=== PATIENT | female | born 1975 | race Caucasian/White ===

== ENCOUNTER 2016-08-08 06:17 | Day surgery (SDC) | payer BC ==
[2016-08-08] MEDS ORDERED: BUPIVACAINE 0.5% 30 ML SDV ONE (07:28)
[2016-08-08] MEDS ORDERED: LR 1,000 ML IV ONE (07:46)
[2016-08-08] MEDS ORDERED: LIDOCAINE 2% JELLY 5 ML TUBE ONE (08:36)
[2016-08-08] MEDS ORDERED: DEXAMETHASONE 4 MG/ML VIAL ONE ×2 (08:36)
[2016-08-08] MEDS ORDERED: LIDOCAINE 2% 5 ML SDV ONE (08:36)
[2016-08-08] MEDS ORDERED: fentaNYL 100 MCG/2 ML INJ ONE ×2 (08:36→09:58)
[2016-08-08] MEDS ORDERED: ONDANSETRON 4 MG/2 ML VIAL ONE (08:36)
[2016-08-08] MEDS ORDERED: PROPOFOL 200 MG/20 ML VIAL ONE ×2 (08:36→09:58)
[2016-08-08] MEDS ORDERED: MIDAZOLAM 2 MG/2 ML VIAL ONE (09:04)
[2016-08-08] MEDS ORDERED: ceFAZolin 1 GM VIAL ONE ×2 (09:48)
[2016-08-08] MEDS ORDERED: HYDROCODONE/APAP 5/325 TAB ONE (11:05)
--- NOTE | 2016-08-08 11:23 | GOP ---
[f rep st] OPERATIVE REPORT DATE OF OPERATION: 08/08/2016 SURGEON: Andreas Trevizo MD PREOPERATIVE DIAGNOSIS: Palmar radial left wrist ganglion cyst and adhesion, flexor carpi radialis tendon. POSTOPERATIVE DIAGNOSIS: Palmar radial left wrist ganglion cyst and adhesion, flexor carpi radialis tendon; abductor pollicis longus and extensor pollicis brevis tendon adhesions. PROCEDURE PERFORMED: Abductor longus extensor brevis and flexor carpi radialis tenolysis, and excis ion of ganglion cyst. FINDINGS: INDICATIONS: Palmar radial wrist pain and swelling longstanding with no improvement with nonoperati ve management. It was felt that surgical treatment at this point was a good option for her. DESCRIPTION OF PROCEDURE: Under general anesthesia, the patient's left arm was prepped and draped i n the usual fashion. An L-shaped incision was made over the palmar radial aspect of the wrist, and skin and subcutaneous tissue was reflected. The skin flap was tied back ulnarly, and the ganglion c yst was immediately apparent. That was excised, along with a portion of the FCR tendon sheath, and the tendon was very adherent to the surrounding tendon sheath. This extended well proximal to the F CR tendon sheath and extended down into the palm of the hand. The tendon sheath was released, and t he tendon freed from all adhesions. The radial artery and associated veins appeared normal. First dorsal compartment had very prominent dorsal and palmar bony ridges, and it was decided that excisio n of those bony ridges would be a good idea also to provide better comfort of the wrist. The bony r idges were excised. The first dorsal compartment was opened, and also there was very significant ad hesion of adductor longus and extensor brevis tendons, and the 1st dorsal compartment was septated s o that from about mid compartment all the way distally and to the carpometacarpal joint area, it was seen that the compartment was septated and the tendons were adherent. Tendons were freed up all th e way down to the base of the thumb from well proximal to the 1st dorsal compartment. No other path ology was identified. The capsule at the radioscaphoid interval appeared normal. The wound was irr igated profusely with body temperature saline. 0.5% plain Marcaine was instilled in the operative a faisal. The area was irrigated several times during the course of the operative procedure. The subcut aneous tissue was closed with inverted simple sutures of 4-0 PDS, and the skin was closed with horiz ontal mattress sutures of 5-0 Prolene. A bulky soft pressure dressing was applied, followed by palm ar base fiberglass splint held in place with an Nick bandage. She tolerated the procedure well. The re were no complications. She was brought from the operating room to recovery room in [facility], [place], given detailed postoperative instructions prior to discharge, and a prescription for [facility] and Ke flex was provided. She had been given 2 g of Ancef prior to commencement of surgery. Followup azeb roa in the office for 7-10 days postop for dressing and suture removal, and remobilization exer cises with a Velcro strap splint to be worn at night for a week to 10 days. /[id number]/MODL
== END 2016-08-08 11:40 | disposition home or self-care (01) ==
LOC: FSGY 06:17
PROVIDERS: ATTEND Specialist
PROC: 0LC60ZZ Extirpation of Matter from Left Lower Arm and Wrist Tendon, Open Approach (ICD-10-PCS; principal; 2016-08-08 09:15)
PROC: 0LN60ZZ Release Left Lower Arm and Wrist Tendon, Open Approach (ICD-10-PCS; principal; 2016-08-08 09:15)
DX: M67.432 Ganglion, left wrist (principal); M65.88 Other synovitis and tenosynovitis, other site; E66.9 Obesity, unspecified; Z68.43 Body mass index [BMI] 50.0-59.9, adult
CPT/HCPCS: J0690; J1100; J2250; J2405; J2704; J3010

== ENCOUNTER 2016-09-06 15:24 | Emergency (ER) | payer BC ==
[2016-09-06 15:30] VITALS: BP 149/94; PULSE 103; RESP 14; TEMP 98.8; O2SAT 93
--- NOTE | 2016-09-06 16:10 | EDPHY ---
H & P Time Seen by Provider: 09/06/16 16:01 HPI/ROS: CHIEF COMPLAINT: Low back pain HISTORY OF PRESENT ILLNESS: The patient is a 40-year-old female who presents with low back pain for the past few days. The pain is localized to the left lower back and occasionally radiates to the right side. She has tried taking Aleve, and finds relief for short duration of time. The patient states her pain is worse with sitting for long periods of time. The pain is also worsened with change of position and bending over. No leg pain, weakness or numbness. She denies urinary complaints. REVIEW OF SYSTEMS: A comprehensive 10 point review of systems is otherwise negative aside from elements mentioned in the history of present illness. Past Medical/Surgical History: Kidney stones. PSH: Left wrist surgery. Social History: Works at [employer]. Smoking Status: Never smoked Physical Exam: General Appearance: Alert, pleasant Eyes: Pupils equal and round, no conjunctival pallor ENT, Mouth: Mucous membranes moist Neck: Normal inspection Gastrointestinal: Abdomen is obese, NT Back: Left paraspinous tenderness. Neurological: A&O, motor intact, including dorsiflexion of ankle and first toe ; sensory intact, gait normal Skin: Warm and dry, no rash Extremities: Nontender, no pedal edema Psychiatric: Mood and affect normal Constitutional: Initial Vital Signs Temperature (C) 37.1 C 09/06/16 15:28 Heart Rate 103 H 09/06/16 15:28 Respiratory Rate 14 09/06/16 15:28 Blood Pressure 149/94 H 09/06/16 15:28 O2 Sat (%) 93 09/06/16 15:28 O2 Delivery Mode Room Air Allergies/Adverse Reactions: No Known Allergies Allergy (Verified 09/06/16 15:27) Home Medications: Medication Instructions Recorded Aleve 08/17/15 Herbals/Supplements -Info Only 08/17/15 Lidocaine 5% [Lidoderm 5% Patch 2 ea TD DAILY PRN #20 patch 09/06/16 (*)] Medical Decision Making ED Course/Re-evaluation: The patient is an obese woman presenting with low back pain for the past few days. She states she has not done any activity since May. Over the past few days she's noticed left low back pain that is worse with sitting for long periods of time. On exam the patient has left paraspinous tenderness, symptoms are likely musculoskeletal. No imaging is necessary at this time. The patient received a Lidocaine patch in the ED. I discharged her home with Ibuprofen and Lidocaine patches. Patient was referred to a primary care physician. Return precautions given. Differential Diagnosis: Differential diagnosis for back pain includes muscular pain, herniated disc, epidural abscess, discitis, spine fracture, intra-abdominal causes and urinary tract infection. - Data Points Medications Given: Discontinued Medications Lidocaine (Lidoderm 5%) 2 ea TD EDNOW ONE Stop: 09/07/16 09:01 Last Admin: 09/06/16 16:17 Dose: 2 ea Departure - Departure Disposition: Home, Routine, Self-Care Clinical Impression: Musculoskeletal back pain Condition: Good Instructions: Low Back Strain (ED) Additional Instructions: Take 600mg Ibuprofen every 6-8 hours as needed for pain. Use the lidocaine patch as directed for ongoing pain. You have been referred to a primary care physician below, please followup as necessary. Referrals: Vivian Samayoa MD [Medical Doctor] - As per Instructions (Primary Care Physician) Prescriptions: Lidocaine 5% [Lidoderm 5% Patch (*)] 2 ea TD DAILY PRN #20 patch PRN Reason: back pain Report Scribed for: Veronica Tripathi Report Scribed by: Afsaneh Del Valle Date of Report: 09/06/16 Time of Report: 16:04 Physician Review and Approval Statement: 09/06/16 16:04 Portions of this note were transcribed by a medical referral coordinator. I personally performed the history, physical exam, and medical decision-making; and confirmed the accuracy of the information in the transcribed note.
[2016-09-06] MEDS ORDERED: LIDOCAINE 5% 1 EA PATCH TD ONE (16:16)
[2016-09-07] MEDS ORDERED: LIDOCAINE 5% 1 EA PATCH TD ONE (09:00)
== END 2016-09-06 16:24 | disposition home or self-care (01) ==
DX: M54.5 Low back pain (principal)

== ENCOUNTER 2016-10-10 23:43 | Emergency (ER) | payer BC ==
[2016-10-10 23:49] VITALS: TEMP 98.1
[2016-10-10] MEDS ORDERED: fentaNYL 100 MCG/2 ML INJ IVP ONE (23:54)
[2016-10-10] MEDS ORDERED: NS 1,000 ML IV ONE (23:54)
[2016-10-10] MEDS ORDERED: ONDANSETRON 4 MG/2 ML VIAL IVP ONE (23:54)
--- NOTE | 2016-10-10 23:54 | EDPHY ---
H & P Stated Complaint: R flank pain, Hx of kidney stones/infections HPI/ROS: HPI CHIEF COMPLAINT: Right-sided flank pain tonight HISTORY OF PRESENT ILLNESS: This patient very pleasant 41-year-old female, significant past medical history urinary tract infection, pyelonephritis, kidney stones, thyroid disease, presents emergency room from work where she suddenly developed right sided CVA pain described as sharp stabbing in nature debilitating. Does not radiate anywhere. There is no associated nausea vomiting. Denies fever. Denies chest pain or shortness of breath. Pain is localized to her right CVA region. She tells me feels similar to previous kidney stones. She has had a kidney stone left side. Past Medical History: Pre diabetes, urinary tract infection, pyelonephritis, kidney stones thyroid disease Past Surgical History: Left wrist surgery, kidney stone removal left kidney Social History: Works at [employer] denies drugs alcohol tobacco Family History: Noncontributory ROS REVIEW OF SYSTEMS: A comprehensive 10 point review of systems is otherwise negative aside from elements mentioned in the history of present illness. Exam Constitutional triage nursing summary reviewed, vital signs reviewed, awake/ alert. Eyes normal conjunctivae and sclera, EOMI, PERRLA. HENT normal inspection, atraumatic, moist mucus membranes, no epistaxis, neck supple/ no meningismus, no raccoon eyes. Respiratory clear to auscultation bilaterally, normal breath sounds, no respiratory distress, no wheezing. Cardiovascular rate normal, regular rhythm, no murmur, no edema, distal pulses normal. Gastrointestinal soft, non-tender, no rebound, no guarding, normal bowel sounds, no distension, no pulsatile mass. Genitourinary tender palpation right CVA. Musculoskeletal no midline vertebral tenderness, full range of motion, no calf swelling, no tenderness of extremities, no meningismus, good pulses, neurovascularly intact. Skin pink, warm, & dry, no rash, skin atraumatic. Neurologic awake, alert and oriented x 3, AAOx3, moves all 4 extremities equally, motor intact, sensory intact, CN II-XII intact, normal cerebellar, normal vision, normal speech. Psychiatric normal mood/affect. Heme/Lymph/Immune no lymphadenopathy. Differential Diagnosis: Includes but is not limited to in a particular order, UTI, pyelonephritis, kidney stones, hydroureter, hydronephrosis, musculoskeletal back pain Medical Decision Making: Plan for this patient check urinalysis, gentle IV hydration, IV Toradol for acute pain control after creatinine comes back, IV Zofran for nausea, CT abdomen pelvis without contrast to evaluate for kidney stone Re-evaluation: CT scan of the abdomen pelvis without IV contrast The results of the study are shows a 6 mm stone left distal UVJ operative side where she is having pain. Right side is clean for kidney stones.. The study was read by Dr. Napier I viewed the images myself on the PACS system. [id number]: I have updated this patient on her CT results. She understands she has a small kidney stone on the left side. Almost into her bladder. Her urinalysis does indicate a very small amount of urinary tract infection she received 1 g Rocephin here in the emergency room she is nontoxic appearing without fever vomiting or significant abdominal pain. I will allow her to go home on Keflex. Flomax. She understands drink lots of fluids. Will give her Urology referral if she needs it. Also she is requesting a work note. Source: Patient - Personal History LMP (Females 10-55): 8-14 Days Ago Current Tetanus/Diphtheria Vaccine: Yes - Medical/Surgical History Hx Asthma: No Hx Chronic Respiratory Disease: No Hx Diabetes: No Hx Cardiac Disease: No Hx Renal Disease: Yes Hx Cirrhosis: No Hx Alcoholism: No Hx HIV/AIDS: No Hx Splenectomy or Spleen Trauma: No Other PMH: PMHx: KIDNEY STONES, BRONCHITIS. PSHX: L wrist for carpal tunnel, kidney stone - Social History Smoking Status: Never smoked Constitutional: Initial Vital Signs Temperature (C) 36.7 C 10/10/16 23:45 Heart Rate 84 10/10/16 23:45 Respiratory Rate 19 10/10/16 23:45 Blood Pressure 137/87 H 10/10/16 23:45 O2 Sat (%) 95 10/10/16 23:45 O2 Delivery Mode Room Air Allergies/Adverse Reactions: No Known Allergies Allergy (Verified 09/06/16 15:27) Home Medications: Medication Instructions Recorded Herbals/Supplements -Info Only 08/17/15 Cephalexin [Keflex] 500 mg PO Q6H #28 cap 10/11/16 Tamsulosin HCl [Flomax] 0.4 mg PO DAILY #10 cap 10/11/16 Medical Decision Making - Data Points Laboratory Results: Laboratory Results 10/11/16 01:07 10/11/16 00:18 10/11/16 10/11/16 10/11/16 01:07 00:18 00:18 WBC 8.76 10^3/uL 10^3/uL (3.80-9.50) RBC 4.32 10^6/uL 10^6/uL (4.18-5.33) Hgb 12.6 g/dL g/dL (12.6-16.3) Hct 39.6 % % (38.0-47.0) MCV 91.7 fL fL (81.5-99.8) MCH 29.2 pg pg (27.9-34.1) MCHC 31.8 g/dL L g/dL (32.4-36.7) RDW 13.8 % % (11.5-15.2) Plt Count 249 10^3/uL 10^3/uL (150-400) MPV 10.5 fL fL (8.7-11.7) Neut % (Auto) 58.3 % % (39.3-74.2) Lymph % (Auto) 27.5 % % (15.0-45.0) [place] % (Auto) 9.2 % % (4.5-13.0) Eos % (Auto) 3.9 % % (0.6-7.6) Baso % (Auto) 0.6 % % (0.3-1.7) Nucleat RBC Rel Count 0.0 % % (0.0-0.2) Absolute Neuts (auto) 5.11 10^3/uL 10^3/uL (1.70-6.50) Absolute Lymphs (auto) 2.41 10^3/uL 10^3/uL (1.00-3.00) Absolute Monos (auto) 0.81 10^3/uL H 10^3/uL (0.30-0.80) Absolute Eos (auto) 0.34 10^3/uL 10^3/uL (0.03-0.40) Absolute Basos (auto) 0.05 10^3/uL 10^3/uL (0.02-0.10) Absolute Nucleated RBC 0.00 10^3/uL 10^3/uL (0-0.01) Immature Gran % 0.5 % % (0.0-1.1) Immature Gran # 0.04 10^3/uL 10^3/uL (0.00-0.10) Sodium Potassium Chloride Carbon Dioxide Anion Gap BUN Creatinine Estimated GFR Glucose Calcium Beta HCG, Qual NEGATIVE Urine Color YELLOW Urine Appearance HAZY Urine pH 5.0 (5.0-7.5) Ur Specific [place] 1.025 (1.002-1.030) Urine Protein NEGATIVE (NEGATIVE) Urine Ketones NEGATIVE (NEGATIVE) Urine Blood NEGATIVE (NEGATIVE) Urine Nitrate NEGATIVE (NEGATIVE) Urine Bilirubin NEGATIVE (NEGATIVE) Urine Urobilinogen NEGATIVE EU EU (0.2-1.0) Ur Leukocyte Esterase 1+ H (NEGATIVE) Urine RBC 1-3 /hpf /hpf (0-3) Urine WBC 10-15 /hpf H /hpf (0-3) Ur Epithelial Cells TRACE /lpf /lpf (NONE-1+) Urine Mucus TRACE /lpf /lpf (NONE-1+) Urine Glucose NEGATIVE (NEGATIVE) 10/11/16 10/11/16 00:18 00:18 WBC REJ RBC REJ Hgb REJ Hct REJ MCV REJ MCH REJ MCHC REJ RDW REJ Plt Count REJ MPV REJ Neut % (Auto) REJ Lymph % (Auto) REJ [place] % (Auto) REJ Eos % (Auto) REJ Baso % (Auto) REJ Nucleat RBC Rel Count REJ Absolute Neuts (auto) REJ Absolute Lymphs (auto) REJ Absolute Monos (auto) REJ Absolute Eos (auto) REJ Absolute Basos (auto) REJ Absolute Nucleated RBC REJ Immature Gran % REJ Immature Gran # REJ Sodium 141 mEq/L mEq/L (134-144) Potassium 4.6 mEq/L mEq/L (3.5-5.2) Chloride 109 mEq/L mEq/L (97-110) Carbon Dioxide 19 mEq/l L mEq/l (22-31) Anion Gap 13 mEq/L mEq/L (8-16) BUN 14 mg/dL mg/dL (7-23) Creatinine 0.7 mg/dL mg/dL (0.6-1.0) Estimated GFR > 60 Glucose 94 mg/dL mg/dL (70-100) Calcium 9.8 mg/dL mg/dL (8.5-10.4) Beta HCG, Qual Urine Color Urine Appearance Urine pH Ur Specific [place] Urine Protein Urine Ketones Urine Blood Urine Nitrate Urine Bilirubin Urine Urobilinogen Ur Leukocyte Esterase Urine RBC Urine WBC Ur Epithelial Cells Urine Mucus Urine Glucose Medications Given: Discontinued Medications Fentanyl (Sublimaze) 50 mcg IVP EDNOW ONE Stop: 10/11/16 00:02 Last Admin: 10/11/16 00:03 Dose: Not Given Sodium Chloride (Ns) 1,000 mls @ 0 mls/hr IV ONCE ONE; Wide Open PRN Reason: Protocol Stop: 10/10/16 23:55 Last Admin: 10/11/16 00:20 Dose: 1,000 mls Ceftriaxone Sodium/Dextrose (Rocephin 1 Gm (Premix)) 50 mls @ 100 mls/hr IV EDNOW ONE PRN Reason: Protocol Stop: 10/11/16 01:12 Last Admin: 10/11/16 01:09 Dose: 50 mls Ketorolac Tromethamine (Toradol) 15 mg IVP EDNOW ONE Stop: 10/11/16 00:03 Last Admin: 10/11/16 01:10 Dose: 15 mg Ondansetron HCl (Zofran) 4 mg IVP EDNOW ONE Stop: 10/10/16 23:55 Last Admin: 10/11/16 00:21 Dose: 4 mg Departure - Departure Disposition: Home, Routine, Self-Care Clinical Impression: Flank pain, Kidney stone on left side UTI (urinary tract infection) Qualifiers: Urinary tract infection type: acute cystitis Hematuria presence: with hematuria Qualified Code(s): N30.01 - Acute cystitis with hematuria Condition: Good Instructions: Flank Pain (ED) Additional Instructions: 1. Make sure to drink lots of water. Stay well-hydrated. 2. Take antibiotics as prescribed 3. Return emergency room if you have worsening pain, fever, vomiting. Referrals: Veronica Laura MD [Primary Care Provider] - As per Instructions Carlos Llamas MD [Medical Doctor] - As per Instructions Stand Alone Forms: Work Excuse Prescriptions: Cephalexin [Keflex] 500 mg PO Q6H #28 cap Tamsulosin HCl [Flomax] 0.4 mg PO DAILY #10 cap
[2016-10-11] MEDS ORDERED: KETOROLAC 30 MG/1 ML SDV IVP ONE (00:02)
[2016-10-11 00:28] LABS: COLOR YELLOW; LEUKOCYTE ESTERASE,URINE 1+ (NEGATIVE); NITRITE,URINE NEGATIVE (NEGATIVE)
[2016-10-11 00:30] LABS: MUCUS TRACE /lpf (NONE-1+)
[2016-10-11 00:48] LABS: ANION GAP 13 mEq/L (8-16); CALCIUM 9.8 mg/dL (8.5-10.4); CARBON DIOXIDE 19 mEq/l (22-31); CHLORIDE 109 mEq/L (97-110); CREATININE 0.7 mg/dL (0.6-1.0); GLOMERULAR FILTRATION RATE > 60; GLUCOSE 94 mg/dL (70-100); POTASSIUM 4.6 mEq/L (3.5-5.2); SODIUM 141 mEq/L (134-144)
[2016-10-11 01:13] LABS: % IMMATURE GRANULYOCYTES 0.5 % (0.0-1.1); ABSOLUTE IMMATURE GRANULOCYTES 0.04 10^3/uL (0.00-0.10); ADD DIFF? NO; ADD MORPH? NO; ADD SCAN? NO; ATYPICAL LYMPHOCYTE FLAG 0 (0-99); FRAGMENT RBC FLAG 0 (0-99); HEMATOCRIT 39.6 % (38.0-47.0); HEMOGLOBIN 12.6 g/dL (12.6-16.3); LEFT SHIFT FLG 0 (0-99); LIPEMIA HEMOLYSIS FLAG 80 (0-99); MEAN CELL HEMOGLOBIN 29.2 pg (27.9-34.1); MEAN CELL HEMOGLOBIN CONCENTR. 31.8 g/dL (32.4-36.7); MEAN CELL VOLUME 91.7 fL (81.5-99.8); MEAN PLATELET VOLUME 10.5 fL (8.7-11.7); PLATELET CLUMPS FLAG 0 (0-99); PLATELET COUNT 249 10^3/uL (150-400); RED BLOOD CELL COUNT 4.32 10^6/uL (4.18-5.33); RED CELL DISTRIBUTION WIDTH 13.8 % (11.5-15.2)
[2016-10-11 01:50] VITALS: BP 137/80; PULSE 76; RESP 18; O2SAT 98
== END 2016-10-11 01:50 | disposition home or self-care (01) ==
DX: N20.0 Calculus of kidney (principal); E86.9 Volume depletion, unspecified
CPT/HCPCS: 96365; J0696; J1885; J2405

== ENCOUNTER 2016-10-24 06:47 | Emergency (ER) | payer BC ==
--- NOTE | 2016-10-24 06:52 | EDPHY ---
H & P Time Seen by Provider: 10/24/16 06:51 HPI/ROS: CHIEF COMPLAINT: Right knee pain HISTORY OF PRESENT ILLNESS: The patient presents to the ED with chronic right knee pain. The patient has been seen by Orthopedic surgery who is recommending physical therapy. They also advised the patient take NSAIDs. The patient did have a prescription for narcotic pain medications which she used in his run out of. She presents to the ED requesting narcotic pain meds. The patient denies additional acute complaints. She reports the pain in her right knee is moderate worsened with movement and specifically flexion. REVIEW OF SYSTEMS: A comprehensive 10 point review of systems is otherwise negative aside from elements mentioned in the history of present illness. Source: Patient Exam Limitations: No limitations - Medical/Surgical History Hx Asthma: No Hx Chronic Respiratory Disease: No Hx Diabetes: No Hx Cardiac Disease: No Hx Renal Disease: Yes Hx Cirrhosis: No Hx Alcoholism: No Hx HIV/AIDS: No Hx Splenectomy or Spleen Trauma: No Other PMH: PMHx: KIDNEY STONES, BRONCHITIS. PSHX: L wrist for carpal tunnel, kidney stone - Social History Smoking Status: Never smoked - Physical Exam Exam: General Appearance: Alert, no distress, obese female Respiratory: There are no retractions, lungs are clear to auscultation Cardiovascular: Regular rate and rhythm Gastrointestinal: Abdomen is soft and nontender, no masses, bowel sounds normal Neurological: 5/5 strength noted all 4 extremities Skin: Warm and dry, no rashes Musculoskeletal: Neck is supple nontender Extremities: Tenderness to palpation over right patella and throughout the right knee, no significant erythema noted Constitutional: Initial Vital Signs Temperature (C) 37.1 C 10/24/16 06:51 Heart Rate 96 10/24/16 06:51 Respiratory Rate 16 10/24/16 06:51 Blood Pressure 165/86 H 10/24/16 06:51 O2 Sat (%) 94 10/24/16 06:51 O2 Delivery Mode Room Air Allergies/Adverse Reactions: No Known Allergies Allergy (Verified 09/06/16 15:27) Home Medications: Medication Instructions Recorded Aleve 10/24/16 Bcp 10/24/16 Anselmo 5/325 (*) 10/24/16 Synthroid 10/24/16 predniSONE [prednisone 20mg (RX)] 3 tab PO DAILY #15 tab 10/24/16 Medical Decision Making ED Course/Re-evaluation: The patient presents to the ED with chronic knee pain from presumed osteoarthritis. The patient will be given a short course of systemic steroids. I have asked her to continue to follow up with her regular orthopedic surgeon Dr. Wilder for unimproved symptoms. I did tell the patient that I would not be managing her chronic pain with narcotic medications. Departure - Departure Disposition: Home, Routine, Self-Care Clinical Impression: Right knee pain Condition: Good Instructions: Musculoskeletal Pain (ED) Additional Instructions: 1. Take prednisone as directed for next 5 days. 2. Continue Aleve or Advil as recommended by Dr. Wilder. 3. Please follow up with your primary care provider for further management of your chronic pain needs. We will be unable to provide narcotic pain medications for chronic knee pain from the emergency department. Referrals: Veronica Laura MD [Primary Care Provider] - As per Instructions
[2016-10-24 06:54] VITALS: BP 165/86; PULSE 96; RESP 16; TEMP 98.8; O2SAT 94
== END 2016-10-24 07:24 | disposition home or self-care (01) ==
DX: M25.561 Pain in right knee (principal)

== ENCOUNTER 2016-12-06 01:22 | Emergency (ER) | payer BC ==
[2016-12-06 01:28] VITALS: TEMP 98.4
[2016-12-06 01:42] LABS: COLOR YELLOW; LEUKOCYTE ESTERASE,URINE 2+ (NEGATIVE); NITRITE,URINE NEGATIVE (NEGATIVE)
[2016-12-06 01:48] LABS: BACTERIA 1+ /hpf (NONE SEEN); RBC,URINE 50-182 /hpf (0-3); WBC,URINE 50-182 /hpf (0-3)
[2016-12-06] MEDS ORDERED: KETOROLAC 15 MG/1 ML SDV IVP ONE (02:03)
[2016-12-06] MEDS ORDERED: KETAMINE 500 MG/10 ML VIAL NASAL ONE (02:03)
[2016-12-06] MEDS ORDERED: NS 1,000 ML IV ONE (02:03)
[2016-12-06] MEDS ORDERED: LIDOCAINE 1% 200 MG in NS 100 ML IV ONE (02:03)
[2016-12-06 02:50] LABS: % IMMATURE GRANULYOCYTES 0.4 % (0.0-1.1); ABSOLUTE IMMATURE GRANULOCYTES 0.04 10^3/uL (0.00-0.10); ADD DIFF? NO; ADD MORPH? NO; ADD SCAN? NO; ATYPICAL LYMPHOCYTE FLAG 0 (0-99); FRAGMENT RBC FLAG 0 (0-99); HEMATOCRIT 44.6 % (38.0-47.0); HEMOGLOBIN 14.1 g/dL (12.6-16.3); LEFT SHIFT FLG 0 (0-99); LIPEMIA HEMOLYSIS FLAG 80 (0-99); MEAN CELL HEMOGLOBIN 29.3 pg (27.9-34.1); MEAN CELL HEMOGLOBIN CONCENTR. 31.6 g/dL (32.4-36.7); MEAN CELL VOLUME 92.7 fL (81.5-99.8); MEAN PLATELET VOLUME 11.1 fL (8.7-11.7); PLATELET CLUMPS FLAG 20 (0-99); PLATELET COUNT 325 10^3/uL (150-400); RED BLOOD CELL COUNT 4.81 10^6/uL (4.18-5.33); RED CELL DISTRIBUTION WIDTH 13.8 % (11.5-15.2)
[2016-12-06 03:00] LABS: ANION GAP 14 mEq/L (8-16); CALCIUM 9.6 mg/dL (8.5-10.4); CARBON DIOXIDE 24 mEq/l (22-31); CHLORIDE 105 mEq/L (97-110); CREATININE 0.7 mg/dL (0.6-1.0); GLOMERULAR FILTRATION RATE > 60; GLUCOSE 95 mg/dL (70-100); POTASSIUM 3.9 mEq/L (3.5-5.2); SODIUM 143 mEq/L (134-144)
--- NOTE | 2016-12-06 04:37 | EDPHY ---
H & P Stated Complaint: l flank pain x 2 hours, nausea, vomiting yesterday and today HPI/ROS: HPI The patient presents with left-sided flank pain which has been present for the last 2 hours which started suddenly while resting and achy in nature. It does not radiate and is severe. It feels like prior kidney stones. She has not had any dysuria or hematuria that she is aware of. She has had vomiting. She has not had a fever. REVIEW OF SYSTEMS Constitutional: No fever, no chills. Eyes: No discharge. ENT: No sore throat. Cardiovascular: No chest pain, no palpitations. Respiratory: No cough, no shortness of breath. Gastrointestinal: No abdominal pain, no vomiting. Genitourinary: No hematuria. Musculoskeletal: No back pain. Skin: No rashes. Neurological: No headache. PMHx: History of nephrolithiasis Soc Hx: Housed PHYSICAL General Appearance: Alert, no distress Eyes: Pupils equal and round no pallor or injection ENT, Mouth: Mucous membranes moist Respiratory: There are no retractions, lungs are clear to auscultation Cardiovascular: Regular rate and rhythm Gastrointestinal: Abdomen is soft and non-tender, no masses, bowel sounds normal Neurological: A&O, moves all extremities Back: No CVA tenderness Skin: Warm and dry, no rashes Musculoskeletal: Neck is supple non tender Extremities: symmetrical, full range of motion Psychiatric: Patient is oriented X 3, there is no agitation Source: Patient Exam Limitations: No limitations - Personal History LMP (Females 10-55): 22-28 Days Ago Current Tetanus/Diphtheria Vaccine: Yes Tetanus Vaccine Date: 2014 - Medical/Surgical History Hx Asthma: No Hx Chronic Respiratory Disease: No Hx Diabetes: No Hx Cardiac Disease: No Hx Renal Disease: Yes Hx Cirrhosis: No Hx Alcoholism: No Hx HIV/AIDS: No Hx Splenectomy or Spleen Trauma: No Other PMH: PMHx: KIDNEY STONES, BRONCHITIS. PSHX: L wrist for carpal tunnel, kidney stone, ganglion cyst surgery - Social History Smoking Status: Never smoked Constitutional: Initial Vital Signs Temperature (C) 36.9 C 12/06/16 01:24 Heart Rate 85 12/06/16 01:24 Respiratory Rate 16 12/06/16 01:24 Blood Pressure 154/100 H 12/06/16 01:24 O2 Sat (%) 96 12/06/16 01:24 O2 Delivery Mode Room Air Allergies/Adverse Reactions: No Known Allergies Allergy (Verified 12/06/16 01:27) Home Medications: Medication Instructions Recorded Control 12/06/16 Hydrocodone/APAP 5/325 [Rogers 1 - 2 tab PO Q6H PRN #15 tab 12/06/16 5/325 (*)] Levothyroxine [Synthroid 50 mcg 50 mcg PO DAILY06 12/06/16 (*)] Tamsulosin HCl [Flomax 0.4 MG (*)] 0.4 mg PO DAILY #10 cap 12/06/16 levOFLOXACIN [Levofloxacin] 750 mg PO DAILY #7 tablet 12/06/16 Medical Decision Making - Diagnostics Imaging Results: Renal ultrasound demonstrates left-sided obstructive uropathy, likely related to kidney stones seen on prior CT scan, discussed with Dr. Ames of Radiology. Imaging: Discussed imaging studies w/ call center nurse Radiologist, I viewed and interpreted images myself Differential Diagnosis: This is a 41-year-old female with obesity, prior history of kidney stones who presents with acute onset of left-sided flank pain beginning about 2 hours ago associated with vomiting. On exam here, she is generally well-appearing, afebrile. In the emergency department, labs demonstrated signs of urinary tract infection , thus the patient was given a dose of ceftriaxone. She was given IV fluids and pain medication for her kidney stone. She felt completely better in the emergency room. Ultrasound was performed which did show signs of ureteral stone. Last CT scan showed these at 4 mm within the kidney and I feel these are likely the cause of her symptoms. I doubt any serious infection and her UA could be related to contamination. I think she is okay for discharge and I will start her on outpatient antibiotics as well as medications for her stones. She was previously seen in [facility], however she requests to be seen in [place]. Thus I will refer her to our local urologist. - Data Points Laboratory Results: Laboratory Results 12/06/16 02:35 12/06/16 02:35 Medications Given: Discontinued Medications Ceftriaxone Sodium/Dextrose (Rocephin 1 Gm (Premix)) 50 mls @ 100 mls/hr IV EDNOW ONE PRN Reason: Protocol Stop: 12/06/16 02:33 Last Admin: 12/06/16 02:40 Dose: 50 mls Lidocaine HCl 200 mg/ Sodium (Chloride) 120 mls @ 600 mls/hr IV EDNOW ONE Stop: 12/06/16 02:14 Last Admin: 12/06/16 03:11 Dose: 120 mls Sodium Chloride (Ns) 1,000 mls @ 3,000 mls/hr IV EDNOW ONE Stop: 12/06/16 02:22 Last Admin: 12/06/16 02:38 Dose: 1,000 mls Ketamine HCl (Ketamine) 50 mg NASAL EDNOW ONE Stop: 12/06/16 02:04 Last Admin: 12/06/16 02:48 Dose: Not Given Ketorolac Tromethamine (Toradol) 15 mg IVP EDNOW ONE Stop: 12/06/16 02:04 Last Admin: 12/06/16 02:37 Dose: 15 mg Departure - Departure Disposition: Home, Routine, Self-Care Clinical Impression: Calculus of left kidney Urinary tract infection Qualifiers: Urinary tract infection type: site unspecified Hematuria presence: with hematuria Qualified Code(s): N39.0 - Urinary tract infection, site not specified ; R31.9 - Hematuria, unspecified Condition: Good Instructions: Renal Colic (ED) Additional Instructions: Your ultrasound today shows that you have a kidney stone on the left side that is probably causing you your pain. Because of this, I would like for you to take the medication we have prescribed. For pain, you should for start with ibuprofen 400 mg every 6 hours. If the pain is still severe, then you can take a tab of Rogers. There may be a urinary tract infection as well, and because of this I have recommended the antibiotic. I would like you to follow up with Urology in the next few days. Referrals: Veronica Laura MD [Primary Care Provider] - As per Instructions Carlos Llamas MD [Medical Doctor] - As per Instructions Stand Alone Forms: Work Excuse Prescriptions: Hydrocodone/APAP 5/325 [Rogers 5/325 (*)] 1 - 2 tab PO Q6H PRN #15 tab PRN Reason: Pain, Breakthrough levOFLOXACIN [Levofloxacin] 750 mg PO DAILY #7 tablet Tamsulosin HCl [Flomax 0.4 MG (*)] 0.4 mg PO DAILY #10 cap
[2016-12-06 04:54] VITALS: BP 152/87; PULSE 84; RESP 20; O2SAT 99
== END 2016-12-06 04:54 | disposition home or self-care (01) ==
DX: N20.0 Calculus of kidney (principal); N39.0 Urinary tract infection, site not specified; B96.20 Unspecified Escherichia coli [E. coli] as the cause of diseases classified elsewhere; B95.4 Other streptococcus as the cause of diseases classified elsewhere; R11.10 Vomiting, unspecified
CPT/HCPCS: 96365; J0696; J1885

== ENCOUNTER 2017-03-11 03:50 | Emergency (ER) | payer BC ==
[2017-03-11 03:57] VITALS: TEMP 97.7
[2017-03-11] MEDS ORDERED: NS 1,000 ML IV ONE ×2 (04:16)
[2017-03-11] MEDS ORDERED: LIDOCAINE 1% 200 MG in NS 100 ML IV ONE (04:16)
[2017-03-11] MEDS ORDERED: ONDANSETRON 4 MG/2 ML VIAL IVP ONE (04:16)
--- NOTE | 2017-03-11 04:21 | EDPHY ---
H & P Stated Complaint: Left flank pain Time Seen by Provider: 03/11/17 04:12 HPI/ROS: HPI The patient presents with left-sided flank pain which is sharp in nature and began about 1 hour ago while she was at work as a [employer]. She said the pain started suddenly and has been constant ever since. It is associated with nausea and vomiting. This is the same pain she has had multiple times. She does have a history of kidney stones and I have seen her for this a few months ago in the emergency department. She has since followed up with [facility]. She has not had any fevers or chills.. REVIEW OF SYSTEMS Constitutional: No fever, no chills. Eyes: No discharge. ENT: No sore throat. Cardiovascular: No chest pain, no palpitations. Respiratory: No cough, no shortness of breath. Gastrointestinal: No abdominal pain, no vomiting. Genitourinary: No hematuria. Musculoskeletal: No back pain. Skin: No rashes. Neurological: No headache. PMHx: Recurrence nephrolithiasis, obesity PHYSICAL General Appearance: Alert, no distress Eyes: Pupils equal and round no pallor or injection ENT, Mouth: Mucous membranes moist Respiratory: There are no retractions, lungs are clear to auscultation Cardiovascular: Regular rate and rhythm Gastrointestinal: Abdomen is soft and non-tender, no masses, bowel sounds normal Back: Tenderness of her left flank Neurological: A&O, moves all extremities Skin: Warm and dry, no rashes Musculoskeletal: Neck is supple non tender Extremities: symmetrical, full range of motion Psychiatric: Patient is oriented X 3, there is no agitation Source: Patient Exam Limitations: No limitations - Personal History Current Tetanus/Diphtheria Vaccine: Yes Current Tetanus Diphtheria and Acellular Pertussis (TDAP): Yes Tetanus Vaccine Date: 2014 - Medical/Surgical History Hx Asthma: No Hx Chronic Respiratory Disease: No Hx Diabetes: No Hx Cardiac Disease: No Hx Renal Disease: Yes Hx Cirrhosis: No Hx Alcoholism: No Hx HIV/AIDS: No Hx Splenectomy or Spleen Trauma: No Other PMH: PMHx: KIDNEY STONES, BRONCHITIS. PSHX: L wrist for carpal tunnel, kidney stone, ganglion cyst surgery - Social History Smoking Status: Never smoked Constitutional: Initial Vital Signs Temperature (C) 36.5 C 03/11/17 03:53 Heart Rate 100 03/11/17 03:53 Respiratory Rate 18 03/11/17 03:53 Blood Pressure 114/87 H 03/11/17 03:53 O2 Sat (%) 95 03/11/17 03:53 O2 Delivery Mode Room Air Allergies/Adverse Reactions: No Known Allergies Allergy (Verified 12/06/16 01:27) Home Medications: Medication Instructions Recorded Control 12/06/16 Hydrocodone/APAP 5/325 [[place] 1 - 2 tab PO Q6H PRN #15 tab 12/06/16 5/325 (*)] Levothyroxine [Synthroid 50 mcg 50 mcg PO DAILY06 12/06/16 (*)] Tamsulosin HCl [Flomax 0.4 MG (*)] 0.4 mg PO DAILY #10 cap 12/06/16 levOFLOXACIN [Levofloxacin] 750 mg PO DAILY #7 tablet 12/06/16 Cephalexin [Keflex (*)] 500 mg PO BID 7 Days #14 cap 03/11/17 Medical Decision Making - Diagnostics Imaging Results: Ultrasound renal demonstrates no hydronephrosis, no stones, discussed with Dr. Malik of Radiology. Differential Diagnosis: 41-year-old female with history of nephrolithiasis presents with 1 hour of left- sided flank pain associated with nausea and vomiting. Differential diagnosis includes ureterolithiasis, pyelonephritis, less likely AAA. In the emergency department, patient received IV fluids, Toradol, lidocaine, Zofran with improvement in her symptoms. Labs were checked and were relatively unremarkable. UTI revealed possible mild urinary tract infection. His ultrasound was performed and did not demonstrate any kidney stone. I feel the patient's pain could either be musculoskeletal or due to early pyelonephritis at this point. I will treat her with ceftriaxone and a course of Keflex given her urine culture results from November revealed pansensitive E coli. She will be discharged from the emergency department and is in agreement with this plan. - Data Points Laboratory Results: Laboratory Results 03/11/17 04:15 03/11/17 04:15 03/11/17 03/11/17 03/11/17 Unknown 04:15 04:15 WBC 11.13 10^3/uL H 10^3/uL (3.80-9.50) RBC 4.47 10^6/uL 10^6/uL (4.18-5.33) Hgb 13.3 g/dL g/dL (12.6-16.3) Hct 39.8 % % (38.0-47.0) MCV 89.0 fL fL (81.5-99.8) MCH 29.8 pg pg (27.9-34.1) MCHC 33.4 g/dL g/dL (32.4-36.7) RDW 14.3 % % (11.5-15.2) Plt Count 366 10^3/uL 10^3/uL (150-400) MPV 10.1 fL fL (8.7-11.7) Neut % (Auto) 69.6 % % (39.3-74.2) Lymph % (Auto) 22.4 % % (15.0-45.0) [place] % (Auto) 5.8 % % (4.5-13.0) Eos % (Auto) 1.5 % % (0.6-7.6) Baso % (Auto) 0.5 % % (0.3-1.7) Nucleat RBC Rel Count 0.0 % % (0.0-0.2) Absolute Neuts (auto) 7.74 10^3/uL H 10^3/uL (1.70-6.50) Absolute Lymphs (auto) 2.49 10^3/uL 10^3/uL (1.00-3.00) Absolute Monos (auto) 0.65 10^3/uL 10^3/uL (0.30-0.80) Absolute Eos (auto) 0.17 10^3/uL 10^3/uL (0.03-0.40) Absolute Basos (auto) 0.06 10^3/uL 10^3/uL (0.02-0.10) Absolute Nucleated RBC 0.00 10^3/uL 10^3/uL (0-0.01) Immature Gran % 0.2 % % (0.0-1.1) Immature Gran # 0.02 10^3/uL 10^3/uL (0.00-0.10) Sodium 143 mEq/L mEq/L (134-144) Potassium 4.2 mEq/L mEq/L (3.5-5.2) Chloride 106 mEq/L mEq/L (97-110) Carbon Dioxide 24 mEq/l mEq/l (22-31) Anion Gap 13 mEq/L mEq/L (8-16) BUN 14 mg/dL mg/dL (7-23) Creatinine 0.6 mg/dL mg/dL (0.6-1.0) Estimated GFR > 60 Glucose 93 mg/dL mg/dL (70-100) Calcium 9.9 mg/dL mg/dL (8.5-10.4) Urine Color YELLOW Urine Appearance CLEAR Urine pH 5.0 (5.0-7.5) Ur Specific [place] 1.025 (1.002-1.030) Urine Protein NEGATIVE (NEGATIVE) Urine Ketones NEGATIVE (NEGATIVE) Urine Blood NEGATIVE (NEGATIVE) Urine Nitrate NEGATIVE (NEGATIVE) Urine Bilirubin NEGATIVE (NEGATIVE) Urine Urobilinogen NEGATIVE EU EU (0.2-1.0) Ur Leukocyte Esterase TRACE H (NEGATIVE) Urine RBC 1-3 /hpf /hpf (0-3) Urine WBC 3-5 /hpf H /hpf (0-3) Ur Epithelial Cells 1+ /lpf /lpf (NONE-1+) Urine Mucus TRACE /lpf /lpf (NONE-1+) Urine Glucose NEGATIVE (NEGATIVE) Medications Given: Ceftriaxone Sodium/Dextrose (Rocephin 1 Gm (Premix)) 50 mls @ 100 mls/hr IV EDNOW ONE PRN Reason: Protocol Stop: 03/11/17 06:45 Last Admin: 03/11/17 06:20 Dose: 50 mls Discontinued Medications Sodium Chloride (Ns) 1,000 mls @ 0 mls/hr IV ONCE ONE; Wide Open PRN Reason: Protocol Stop: 03/11/17 04:17 Last Admin: 03/11/17 04:27 Dose: 1,000 mls Lidocaine HCl 200 mg/ Sodium (Chloride) 120 mls @ 600 mls/hr IV EDNOW ONE Stop: 03/11/17 04:27 Last Admin: 03/11/17 04:55 Dose: 120 mls Sodium Chloride (Ns) 1,000 mls @ 3,000 mls/hr IV EDNOW ONE Stop: 03/11/17 04:35 Last Admin: 03/11/17 05:37 Dose: 1,000 mls Ondansetron HCl (Zofran) 4 mg IVP EDNOW ONE Stop: 03/11/17 04:17 Last Admin: 03/11/17 04:27 Dose: 4 mg Departure - Departure Disposition: Home, Routine, Self-Care Clinical Impression: Acute pyelonephritis Condition: Good Instructions: Flank Pain (ED) Additional Instructions: Please return to the emergency department if your worse in any way. Referrals: DR AYO [Other] - As per Instructions [facility] ([facility],. [Edm Groups for Call Sched] - As per Instructions Stand Alone Forms: Work Excuse Prescriptions: Cephalexin [Keflex (*)] 500 mg PO BID 7 Days #14 cap
[2017-03-11 04:39] LABS: % IMMATURE GRANULYOCYTES 0.2 % (0.0-1.1); ABSOLUTE IMMATURE GRANULOCYTES 0.02 10^3/uL (0.00-0.10); ADD DIFF? NO; ADD MORPH? NO; ADD SCAN? NO; ATYPICAL LYMPHOCYTE FLAG 0 (0-99); FRAGMENT RBC FLAG 0 (0-99); HEMATOCRIT 39.8 % (38.0-47.0); HEMOGLOBIN 13.3 g/dL (12.6-16.3); LEFT SHIFT FLG 0 (0-99); LIPEMIA HEMOLYSIS FLAG 80 (0-99); MEAN CELL HEMOGLOBIN 29.8 pg (27.9-34.1); MEAN CELL HEMOGLOBIN CONCENTR. 33.4 g/dL (32.4-36.7); MEAN PLATELET VOLUME 10.1 fL (8.7-11.7); PLATELET CLUMPS FLAG 10 (0-99); PLATELET COUNT 366 10^3/uL (150-400); RED BLOOD CELL COUNT 4.47 10^6/uL (4.18-5.33); RED CELL DISTRIBUTION WIDTH 14.3 % (11.5-15.2)
[2017-03-11 04:51] LABS: ANION GAP 13 mEq/L (8-16); CALCIUM 9.9 mg/dL (8.5-10.4); CARBON DIOXIDE 24 mEq/l (22-31); CHLORIDE 106 mEq/L (97-110); CREATININE 0.6 mg/dL (0.6-1.0); GLOMERULAR FILTRATION RATE > 60; GLUCOSE 93 mg/dL (70-100); POTASSIUM 4.2 mEq/L (3.5-5.2); SODIUM 143 mEq/L (134-144)
[2017-03-11 06:04] VITALS: RESP 18
[2017-03-11 06:04] LABS: COLOR YELLOW; LEUKOCYTE ESTERASE,URINE TRACE (NEGATIVE); NITRITE,URINE NEGATIVE (NEGATIVE)
[2017-03-11 06:10] LABS: MUCUS TRACE /lpf (NONE-1+)
[2017-03-11 06:37] VITALS: BP 130/73; PULSE 76; O2SAT 98
== END 2017-03-11 06:48 | disposition home or self-care (01) ==
DX: N10 Acute pyelonephritis (principal); E86.9 Volume depletion, unspecified
CPT/HCPCS: 96365; J0696; J2405

== ENCOUNTER 2017-04-03 12:02 | Emergency (ER) | payer BC ==
[2017-04-03 12:57] LABS: % IMMATURE GRANULYOCYTES 0.2 % (0.0-1.1); ABSOLUTE IMMATURE GRANULOCYTES 0.03 10^3/uL (0.00-0.10); ADD DIFF? NO; ADD MORPH? NO; ADD SCAN? NO; ATYPICAL LYMPHOCYTE FLAG 10 (0-99); FRAGMENT RBC FLAG 0 (0-99); HEMATOCRIT 41.9 % (38.0-47.0); HEMOGLOBIN 13.7 g/dL (12.6-16.3); LEFT SHIFT FLG 0 (0-99); LIPEMIA HEMOLYSIS FLAG 80 (0-99); MEAN CELL HEMOGLOBIN 29.2 pg (27.9-34.1); MEAN CELL HEMOGLOBIN CONCENTR. 32.7 g/dL (32.4-36.7); MEAN CELL VOLUME 89.3 fL (81.5-99.8); MEAN PLATELET VOLUME 9.9 fL (8.7-11.7); PLATELET CLUMPS FLAG 0 (0-99); PLATELET COUNT 356 10^3/uL (150-400); RED BLOOD CELL COUNT 4.69 10^6/uL (4.18-5.33); RED CELL DISTRIBUTION WIDTH 13.9 % (11.5-15.2)
--- NOTE | 2017-04-03 12:57 | EDPHY ---
H & P Smoking Status: Never smoked Time Seen by Provider: 04/03/17 12:46 HPI/ROS: CHIEF COMPLAINT: Left flank pain HISTORY OF PRESENT ILLNESS: 41-year-old female presents to the emergency department with left flank pain that began yesterday. Patient has a history of pyelonephritis and is concerned that she has recurring infection. She denies any abdominal pain. She states yesterday she also was developing a migraine headache and today has vomited multiple times. She feels that this headache is exactly the same as her other migraines. She denies neck pain. Denies neck stiffness. No fevers or chills. She denies dysuria, urgency or frequency with urination. REVIEW OF SYSTEMS: Constitutional: No fever, no chills. Eyes: No double or blurry vision. ENT: No sore throat. Respiratory: No cough, no shortness of breath. Cardiac: No chest pain. Gastrointestinal: No abdominal pain, vomiting or diarrhea. Genitourinary: No dysuria. Musculoskeletal: Left flank pain as above. No neck pain. Skin: No rashes. Neurological: "Migraine" headache. (Margy Fraser) Past Medical/Surgical History: Pyelonephritis, kidney stones, carpal tunnel surgery, ganglion cyst removal ( Margy Fraser) Social History: (Margy Fraser) Physical Exam: General Appearance: Alert, no distress. Afebrile. No apparent distress. Eyes: Pupils equal and round. Extraocular motions are all intact. ENT: Mouth: Mucous membranes moist. Respiratory: No wheezing, rhonchi, or rales, lungs are clear to auscultation. Cardiovascular: Regular rate and rhythm. Gastrointestinal: Abdomen is obese and soft and nontender, no masses, no rebound or guarding, bowel sounds normal. Neurological: Alert and oriented x 3, cranial nerves II through XII grossly intact Skin: Warm and dry, no rashes. Musculoskeletal: Nontender to palpate along the cervical, thoracic or lumbar spine. Neck is supple. Extremities: Full range of motion and no peripheral edema. Psychiatric: Patient is oriented X 3, there is no agitation. (Maryg Fraser) Constitutional: Initial Vital Signs Temperature (C) 36.9 C 04/03/17 12:23 Heart Rate 101 H 04/03/17 12:23 Respiratory Rate 18 04/03/17 12:23 Blood Pressure 130/82 H 04/03/17 12:23 O2 Sat (%) 95 04/03/17 12:23 O2 Delivery Mode Room Air Allergies/Adverse Reactions: No Known Allergies Allergy (Verified 04/03/17 12:23) Home Medications: Medication Instructions Recorded Control 12/06/16 Levothyroxine [Synthroid 50 mcg 50 mcg PO DAILY06 12/06/16 (*)] Cephalexin [Keflex] 500 mg PO QID #28 cap 04/03/17 Ondansetron Odt [Zofran Odt] 4 mg PO Q4PRN #6 tab 04/03/17 Medical Decision Making ED Course/Re-evaluation: 41-year-old female presents to the emergency department with a left flank pain and concerns about possible recurring pyelonephritis. Patient began vomiting this morning. No fevers or chills. She does have a history of kidney stones although she states that this feels different. No fevers or chills. Abdominal pain. No diarrhea. Urinalysis reveals white blood cells, red blood cells and bacteria. Given her left flank pain as well, I feel that she likely has pyelonephritis clinically. She will be treated with IV Rocephin. I doubt kidney stones. Case was also discussed with Dr. Lorenzo Baez, secondary supervising physician, who also talked with the patient. (Margy Fraser) Differential Diagnosis: Including but not limited to urinary tract infection, pyelonephritis, kidney stone, acute appendicitis (Margy Fraser) Other Provider: PHYSICIAN DOCUMENTATION: The patient was evaluated and managed by the Physician Rip Saw Operator and myself. I have reviewed the chart and agree with the findings and plan of care as documented. In addition, I examined the patient myself at 1335. History confirmed as bilateral flank pain left greater than right. Physical findings as follows: Some left flank tenderness greater than right. White blood cells in the urinalysis, plan for IV ceftriaxone, outpatient oral antibiotics and antiemetics, note for work, urine culture. I am the secondary supervising physician. (Lorenzo Baez) - Data Points Laboratory Results: Laboratory Results 04/03/17 12:41 04/03/17 12:41 04/03/17 04/03/17 04/03/17 12:50 12:41 12:41 WBC RBC Hgb Hct MCV MCH MCHC RDW Plt Count MPV Neut % (Auto) Lymph % (Auto) [place] % (Auto) Eos % (Auto) Baso % (Auto) Nucleat RBC Rel Count Absolute Neuts (auto) Absolute Lymphs (auto) Absolute Monos (auto) Absolute Eos (auto) Absolute Basos (auto) Absolute Nucleated RBC Immature Gran % Immature Gran # Sodium 144 mEq/L mEq/L (134-144) Potassium 4.0 mEq/L mEq/L (3.5-5.2) Chloride 106 mEq/L mEq/L (97-110) Carbon Dioxide 23 mEq/l mEq/l (22-31) Anion Gap 15 mEq/L mEq/L (8-16) BUN 12 mg/dL mg/dL (7-23) Creatinine 0.7 mg/dL mg/dL (0.6-1.0) Estimated GFR > 60 Glucose 88 mg/dL mg/dL (70-100) Calcium 10.0 mg/dL mg/dL (8.5-10.4) Beta HCG, Qual NEGATIVE Urine Color YELLOW Urine Appearance HAZY Urine pH 5.0 (5.0-7.5) Ur Specific [place] 1.025 (1.002-1.030) Urine Protein NEGATIVE (NEGATIVE) Urine Ketones TRACE H (NEGATIVE) Urine Blood NEGATIVE (NEGATIVE) Urine Nitrate NEGATIVE (NEGATIVE) Urine Bilirubin NEGATIVE (NEGATIVE) Urine Urobilinogen NEGATIVE EU EU (0.2-1.0) Ur Leukocyte Esterase NEGATIVE (NEGATIVE) Urine RBC 3-5 /hpf H /hpf (0-3) Urine WBC 10-15 /hpf H /hpf (0-3) Ur Epithelial Cells 1+ /lpf /lpf (NONE-1+) Urine Bacteria TRACE /hpf H /hpf (NONE SEEN) Urine Mucus TRACE /lpf /lpf (NONE-1+) Urine Glucose NEGATIVE (NEGATIVE) 04/03/17 12:41 WBC 12.93 10^3/uL H 10^3/uL (3.80-9.50) RBC 4.69 10^6/uL 10^6/uL (4.18-5.33) Hgb 13.7 g/dL g/dL (12.6-16.3) Hct 41.9 % % (38.0-47.0) MCV 89.3 fL fL (81.5-99.8) MCH 29.2 pg pg (27.9-34.1) MCHC 32.7 g/dL g/dL (32.4-36.7) RDW 13.9 % % (11.5-15.2) Plt Count 356 10^3/uL 10^3/uL (150-400) MPV 9.9 fL fL (8.7-11.7) Neut % (Auto) 59.7 % % (39.3-74.2) Lymph % (Auto) 29.4 % % (15.0-45.0) [place] % (Auto) 8.0 % % (4.5-13.0) Eos % (Auto) 1.9 % % (0.6-7.6) Baso % (Auto) 0.8 % % (0.3-1.7) Nucleat RBC Rel Count 0.0 % % (0.0-0.2) Absolute Neuts (auto) 7.73 10^3/uL H 10^3/uL (1.70-6.50) Absolute Lymphs (auto) 3.80 10^3/uL H 10^3/uL (1.00-3.00) Absolute Monos (auto) 1.03 10^3/uL H 10^3/uL (0.30-0.80) Absolute Eos (auto) 0.24 10^3/uL 10^3/uL (0.03-0.40) Absolute Basos (auto) 0.10 10^3/uL 10^3/uL (0.02-0.10) Absolute Nucleated RBC 0.00 10^3/uL 10^3/uL (0-0.01) Immature Gran % 0.2 % % (0.0-1.1) Immature Gran # 0.03 10^3/uL 10^3/uL (0.00-0.10) Sodium Potassium Chloride Carbon Dioxide Anion Gap BUN Creatinine Estimated GFR Glucose Calcium Beta HCG, Qual Urine Color Urine Appearance Urine pH Ur Specific [place] Urine Protein Urine Ketones Urine Blood Urine Nitrate Urine Bilirubin Urine Urobilinogen Ur Leukocyte Esterase Urine RBC Urine WBC Ur Epithelial Cells Urine Bacteria Urine Mucus Urine Glucose Medications Given: Ceftriaxone Sodium/Dextrose (Rocephin 1 Gm (Premix)) 50 mls @ 100 mls/hr IV EDNOW ONE PRN Reason: Protocol Stop: 04/03/17 14:11 Last Admin: 04/03/17 13:48 Dose: 50 mls Discontinued Medications Sodium Chloride (Ns) 1,000 mls @ 0 mls/hr IV ONCE ONE PRN Reason: Wide Open Stop: 04/03/17 13:16 Last Admin: 04/03/17 13:17 Dose: 1,000 mls Ondansetron HCl (Zofran) 4 mg IVP EDNOW ONE Stop: 04/03/17 13:16 Last Admin: 04/03/17 13:18 Dose: 4 mg Departure - Departure Disposition: Home, Routine, Self-Care Clinical Impression: Acute pyelonephritis Condition: Good Instructions: Kidney Infection (ED) Additional Instructions: Keflex 500 mg 4 times daily for 1 week. Call for the results of your urine culture in 48 hr. Return to the emergency department if you developed fever, back pain, vomiting, or if you feel worse in any way. Referrals: DALLIN ROLLINS [Other] - As per Instructions Stand Alone Forms: Work Excuse Prescriptions: Cephalexin [Keflex] 500 mg PO QID #28 cap Ondansetron Odt [Zofran Odt] 4 mg PO Q4PRN #6 tab
[2017-04-03] MEDS ORDERED: NS 1,000 ML IV ONE (13:15)
[2017-04-03] MEDS ORDERED: ONDANSETRON 4 MG/2 ML VIAL IVP ONE (13:15)
[2017-04-03 13:16] LABS: COLOR YELLOW; LEUKOCYTE ESTERASE,URINE NEGATIVE (NEGATIVE); NITRITE,URINE NEGATIVE (NEGATIVE)
[2017-04-03] MEDS ORDERED: ONDANSETRON 4 MG/2 ML VIAL ONE (13:16)
[2017-04-03 13:27] LABS: BACTERIA TRACE /hpf (NONE SEEN); MUCUS TRACE /lpf (NONE-1+)
[2017-04-03 13:39] LABS: ANION GAP 15 mEq/L (8-16); CARBON DIOXIDE 23 mEq/l (22-31); CHLORIDE 106 mEq/L (97-110); CREATININE 0.7 mg/dL (0.6-1.0); GLOMERULAR FILTRATION RATE > 60; GLUCOSE 88 mg/dL (70-100); SODIUM 144 mEq/L (134-144)
[2017-04-03 14:09] VITALS: BP 118/79; PULSE 86; RESP 16; TEMP 99.1; O2SAT 94
== END 2017-04-03 14:09 | disposition home or self-care (01) ==
DX: N10 Acute pyelonephritis (principal); R11.10 Vomiting, unspecified
CPT/HCPCS: 96374; J0696; J2405

== ENCOUNTER 2018-09-07 11:17 | Emergency (ER) | payer BC ==
--- NOTE | 2018-09-07 12:06 | EDPHY ---
General Time Seen by Provider: 09/07/18 12:05 Narrative: CLINICAL IMPRESSION: Right knee pain ASSESSMENT/PLAN: Patient is a 42-year-old female with a history of obesity, hypothyroidism and chronic right knee pain who presents to the emergency department with acute on chronic right knee pain. X-ray revealed findings suggestive of osteoarthritis, ultrasound negative for DVT or Knight cyst. There was no evidence of significant effusion, acute fracture, dislocation, compartment syndrome, DVT, cellulitis, septic arthritis or neurovascular compromise. Her history and physical examination is most consistent with right knee pain likely secondary to her underlying arthritis. The patient was placed in an Nick wrap for comfort. She is well established with her primary care provider, ortho referral provided. Return precautions discussed. ED course: 1307: No DVT or bakers cyst, discussed with radiologist CHIEF COMPLAINT: Right knee pain HPI: Patient is a 42-year-old obese female with right knee osteoarthritis and hypothyroidism who presents to the emergency department with right knee pain and intermittent right calf pain. Patient endorses several years of intermittent right knee pain. Patient was seen and evaluated by her primary care provider and told she may have a soft tissue injury such as meniscus injury. Patient reports over the last week she has had significantly worsening pain along the medial aspect, posterior aspect and sometimes into her calf. She has been having to use a cane secondary to the increased amount of pain that she is having. She has not had formal evaluation of her knee to include MRI. Patient denies any trauma or falls. She denies any redness or warmth of the knee. No history of surgery to this knee. No history of DVT. ROS: Review of systems otherwise negative, please see HPI. PHYSICAL EXAM: General Appearance: [id number], no acute distress. Respiratory: There are no retractions, lungs are clear to auscultation. Upper Extremities: Intact distal pulses, Full range of motion intact, no tenderness, no ecchymosis or edema Lower Extremities: Left lower extremity is unremarkable. Intact distal pulses, No edema, No tenderness, No cyanosis, full range of motion intact, No calf tenderness bilaterally. Right knee with full range of motion- pain elicited with flexion and extension. Patient has tenderness in the medial knee and posterior fossa without any fullness. No appreciable anterior posterior laxity however exam limited secondary to body habitus. There is no appreciable edema or ecchymosis, there is no rubor or calor. Patient does have tenderness to her calf. There is no erythema or edema compared to her left leg. The right ankle and foot are nontender with full range of motion. Two point discrimination is intact distally. 2+ dorsalis pedis bilaterally. MEDICAL DECISION MAKING: Patient was seen independently. Secondary supervising physician at time of evaluation was Dr. Tripathi, they did not evaluate this patient. Diagnosis: Right knee and calf pain Summary: See Assessment and Plan for summary of ED visit Clinical lab tests: Not applicable. Independent visualization of images, tracing, or specimens: Yes. Decision to obtain medical records or history from someone other than the patient: No Review / Summarize previous medical records: Yes Discussed patient with another provider: Patient Progress: Stable, discharged. - History Smoking Status: Never smoked - Objective Vital Signs: Initial Vital Signs Temperature (C) 36.7 C 09/07/18 11:20 Heart Rate 87 09/07/18 11:20 Respiratory Rate 18 09/07/18 11:20 Blood Pressure 178/87 H 09/07/18 11:20 O2 Sat (%) 97 09/07/18 11:20 O2 Delivery Mode Room Air Allergies/Adverse Reactions: No Known Allergies Allergy (Verified 04/03/17 12:23) Home Medications: Medication Instructions Recorded Levothyroxine 09/07/18 Medications Given: Discontinued Medications Acetaminophen (Tylenol) 1,000 mg PO EDNOW ONE Stop: 09/07/18 12:35 Last Admin: 09/07/18 12:55 Dose: 1,000 mg Departure - Departure Disposition: Home, Routine, Self-Care Clinical Impression: Knee pain, acute Condition: Good Instructions: Knee Pain (ED) Additional Instructions: DISCHARGE INSTRUCTIONS FROM YOUR PROVIDER Thank you for visiting our emergency department today. Please keep in mind that discharge from the emergency department does not mean that there is nothing wrong - it simply means that we have not identified an emergency condition that requires further evaluation or treatment in the hospital. You should always plan to follow up with primary care for re-evaluation of your condition in the next 2-3 days. If you have been referred to a specialist, please call as soon as possible (today or tomorrow) to schedule your follow up appointment at the appropriate time; you have been given a referral for orthopedic surgery, please call to schedule follow-up next week. Ice on and off to the affected knee. Elevate as much as possible. Wear the NICK wrap for compression to help decrease the swelling. Limit weightbearing and walking and use your crutches as needed. You can walk and bear weight as tolerated. For pain control: You may take Tylenol, I recommend 500-1000 mg every 6-8 hours as needed. Take with food and a full glass of water. Stop taking if this is upsetting you stomach. Do not exceed 4000 mg in a 24 hr period. You may also take ibuprofen, recommend 400 mg every 6 hr. Take with food and a full glass of water. Stop taking if this upsets your stomach. Do not exceed 2400 mg in a 24 hr period. Call and schedule a follow-up re-evaluation appointment with your primary care physician in the next 3-7 days. As discussed, you may require further evaluation and/or treatment, ie: an MRI, physical therapy, and/or an orthopedic consultation-- all depending on your healing course. Orthopedic injuries you are at increased risk for developing a blood clot in your leg. Be sure to gently stretch your calf on and off throughout the day and seek follow-up care immediately for any calf pain, redness, swellling, ankle swelling, or other concerns. Return for increased or unmanageable pain, new injury, new site of pain, numbness, tingling, weakness of the leg, coolness or discoloration of the leg/ foot/ankle, redness, swelling, fever, difficulty breathing, chest pain, calf pain, ankle swelling, severe headache, back pain, or for any other new, worsening, or worrisome symptoms. People present with illnesses and injuries in different ways, and it is always possible that we have missed something. Again, thank you for choosing our emergency department. We hope that you feel better. Referrals: Skinny Perea MD [Medical Doctor] - 2-3 days, call for appt.
[2018-09-07] MEDS ORDERED: ACETAMINOPHEN 500 MG TAB PO ONE (12:34)
[2018-09-07 13:28] VITALS: BP 130/99
== END 2018-09-07 13:27 | disposition home or self-care (01) ==
DX: M25.561 Pain in right knee (principal); M17.11 Unilateral primary osteoarthritis, right knee; E03.9 Hypothyroidism, unspecified